=== PATIENT | female | born 1980 | race Caucasian/White ===

== ENCOUNTER 2017-04-01 13:43 | Emergency (ER) | payer BC ==
[2017-04-01 14:15] VITALS: BP 139/86
--- NOTE | 2017-04-01 14:33 | ED ---
Influenza-Like Illness - HPI Summary HPI Summary: 36F presents with flu like symptoms since Saturday. He admits to feverish feeling. She admits to cough. She admits to sinus congestion. She denies any nausea, vomiting, or abdominal pain. She has not taken anything for her symptoms. her mom was sick with flu like symptoms a week ago. no medical conditions. - History of Current Complaint Chief Complaint: UCGeneralIllness Time Seen by Provider: 04/01/17 14:24 - Allergy/Home Medications Allergies/Adverse Reactions: Allergies Allergy/AdvReac Type Severity Reaction Status Date / Time No Known Allergies Allergy Verified 04/01/17 14:15 Home Medications: Home Medications Cetirizine HCl [Zyrtec] 10 mg PO DAILY 04/01/17 [History Confirmed 04/01/17] NK [No Home Medications Reported] 04/01/17 [History Confirmed 04/01/17] PMH/Surg Hx/FS Hx/Imm Hx Endocrine/Hematology History: Denies: Hx Diabetes, Hx Thyroid Disease Cardiovascular History: Denies: Hx Hypertension Respiratory History: Denies: Hx Asthma, Hx Chronic Obstructive Pulmonary Disease (COPD) GI History: Denies: Hx Ulcer - Surgical History Surgery Procedure, Year, and Place: denies Infectious Disease History: No Infectious Disease History: Reports: Traveled Outside the [place] in Last 30 Days - [facility] Denies: Hx Hepatitis, Hx Human Immunodeficiency Virus (HIV) - Family History Known Family History: Negative: Diabetes - Social History Alcohol Use: Rare Substance Use Type: Reports: None Smoking Status (MU): Never Smoked Tobacco Review of Systems Positive: Fever, Chills Positive: Nasal Discharge Negative: Chest Pain Positive: Cough. Negative: Shortness Of Breath Negative: Abdominal Pain All Other Systems Reviewed And Are Negative: Yes Physical Exam Triage Information Reviewed: Yes Vital Signs On Initial Exam: Initial Vitals Temp Pulse Resp BP Pulse Ox 99.1 F 102 16 139/86 100 04/01/17 14:11 04/01/17 14:11 04/01/17 14:11 04/01/17 14:11 04/01/17 14:11 Vital Signs Reviewed: Yes Appearance: Positive: Well-Appearing Skin: Positive: Warm, Dry Head/Face: Positive: Normal Head/Face Inspection Eyes: Positive: Normal, EOMI, KATIE, Conjunctiva Clear ENT: Positive: Normal ENT inspection, Pharynx normal, Nasal congestion, TMs normal Neck: Positive: Supple, Nontender, No Lymphadenopathy Respiratory/Lung Sounds: Positive: Clear to Auscultation, Breath Sounds Present Cardiovascular: Positive: Normal, RRR Abdomen Description: Positive: Nontender, Soft Bowel Sounds: Positive: Present Musculoskeletal: Positive: Normal Neurological: Positive: Normal Psychiatric: Positive: Normal Diagnostics - Vital Signs Vital Signs Temp Pulse Resp BP Pulse Ox 04/01/17 14:11 99.1 F 102 16 139/86 100 - Laboratory Lab Statement: Any lab studies that have been ordered have been reviewed, and results considered in the medical decision making process. Flu Symptom Course/Dx - Course Course Of Treatment: 36F presents with flu like symptoms since Saturday. He admits to feverish feeling. She admits to cough. She admits to sinus congestion. She denies any nausea, vomiting, or abdominal pain. She has not taken anything for her symptoms. her mom was sick with flu like symptoms a week ago. no medical conditions. on exam lungs CTA. flu neg. will treat supporatively. will have follow up with primary about elevated blood pressure. patient understand and agrees with plan. - Diagnoses Differential Diagnosis/HQI/PQRI: Positive: Influenza, Pneumonia, Upper Respiratory Infection Provider Diagnoses: Upper respiratory infection Discharge - Discharge Plan Condition: Good Disposition: HOME Patient Education Materials: Upper Respiratory Infection (ED) Referrals: No Primary Care Phys,NOPCP [Primary Care Provider] - Additional Instructions: Take Tylenol and ibuprofen for muscle aches and fever every 6 hours Saline rinse can be used multiple times a day for nasal congestion Use humidifier in room or place bowls of warm water around room for cough Follow up with primary within 5 days about elevated blood pressure Return to ED if develop any new or worsening symptoms
== END 2017-04-01 15:13 | disposition home or self-care (01) ==
LOC: UCEAST 13:43
DX: J06.9 Acute upper respiratory infection, unspecified (principal)
CPT/HCPCS: 87502; 99211; G0463